=== PATIENT | male | born 1950 | race African-American/Black ===

== ENCOUNTER 2022-12-18 00:23 | Inpatient (IN) | payer SELFPAY ==
[~2022-12-18] VITALS: Ht 195.6 cm; Wt 72.7 kg
[2022-12-18] MEDS ORDERED: SODIUM CHLORIDE 0.9% 1,000 ML IV ONE (01:00)
[2022-12-18 01:09] LABS: Basophils # (auto) 0 10 ^3/uL (0-0.2); Eosinophils # (auto) 0.1 10 ^3/uL (0-0.8); Eosinophils % (auto) 1.7 % (0.0-7.0); Hematocrit 39.5 % (41.0-53.0); Hemoglobin 13.1 g/dL (13.5-17.5); Lymphocytes # (auto) 0.9 10 ^3/uL (0.4-5.4); Lymphocytes % (auto) 21.9 % (10.0-50.0); Mean Corpuscular Hemoglobin 29.4 pg (28.0-32.0); Mean Corpuscular Hgb Conc. 33.1 g/dL (32.0-36.0); Mean Corpuscular Volume 88.9 fL (80.0-100.0); Monocytes # (auto) 0.3 10 ^3/uL (0-1.3); Monocytes % (auto) 8.2 % (0.0-12.0); Neutrophils # (auto) 2.6 10 ^3/uL (1.6-8.6); Neutrophils % (auto) 67.2 % (37.0-80.0); Nucleated Red Blood Cells % 0.1 %; Red Blood Cells 4.44 10^6/uL (4.5-5.90); Red Cell Distribution Width 12.3 % (11.8-14.3); White Blood Cell 3.9 10^3/uL (4.4-10.8)
[2022-12-18 01:25] LABS: Albumin 3.7 g/dL (3.4-5.0); Calcium 9.7 mg/dL (8.5-10.1); Potassium 4.4 mmol/L (3.5-5.1)
[2022-12-18 01:27] LABS: Bilirubin, Total 0.6 mg/dL (0.2-1.0); Total Protein 7.5 g/dL (6.4-8.2)
[2022-12-18 01:53] LABS: BUN/Creatinine Ratio 11.6
[2022-12-18] MEDS ORDERED: InsuLIN REG 1unit/0.01ml Soln (100units/ml) IV ONE (02:30)
[2022-12-18] MEDS ORDERED: DOCUSATE SOD 100 MG CAP PO PRN (06:00)
[2022-12-18] MEDS ORDERED: HYDROcodone-ACET 5/325MG TAB PO PRN (06:00)
[2022-12-18] MEDS ORDERED: DEXTROSE (50%) 50ML SYRG IV PRN (06:00)
[2022-12-18] MEDS ORDERED: hydrALAZINE HCL 20 MG/ML VL IV PRN (06:00)
[2022-12-18] MEDS ORDERED: MORPHINE SULFATE INJ 2 MG/ml SYRG IV PRN (06:00)
[2022-12-18] MEDS ORDERED: NITROGLYCERIN 0.4 MG SL TAB SL PRN (06:00)
[2022-12-18] MEDS ORDERED: ONDANSETRON HCL 4 MG/2 ML VIAL IV PRN (06:00)
[2022-12-18] MEDS ORDERED: ACETAMINOPHEN 325 MG TAB PO PRN (06:00)
[2022-12-18] MEDS ORDERED: SODIUM CHLORIDE 0.9% 1,000 ML IV SCH (06:00)
[2022-12-18 06:56] LABS: Basophils # (auto) 0 10 ^3/uL (0-0.2); Basophils % (auto) 0.6 % (0.0-2.0); Eosinophils # (auto) 0.1 10 ^3/uL (0-0.8); Eosinophils % (auto) 2.2 % (0.0-7.0); Hematocrit 35.6 % (41.0-53.0); Hemoglobin 12.2 g/dL (13.5-17.5); Lymphocytes # (auto) 1.1 10 ^3/uL (0.4-5.4); Mean Corpuscular Hemoglobin 29.5 pg (28.0-32.0); Mean Corpuscular Hgb Conc. 34.2 g/dL (32.0-36.0); Mean Corpuscular Volume 86.3 fL (80.0-100.0); Monocytes # (auto) 0.4 10 ^3/uL (0-1.3); Monocytes % (auto) 9.1 % (0.0-12.0); Neutrophils # (auto) 2.3 10 ^3/uL (1.6-8.6); Neutrophils % (auto) 59.1 % (37.0-80.0); Nucleated Red Blood Cells % 0.2 %; Red Blood Cells 4.12 10^6/uL (4.5-5.90); Red Cell Distribution Width 12.2 % (11.8-14.3); White Blood Cell 3.9 10^3/uL (4.4-10.8)
[2022-12-18 07:07] LABS: Calcium 8.8 mg/dL (8.5-10.1); Potassium 3.7 mmol/L (3.5-5.1)
[2022-12-18 07:13] LABS: Albumin 3.3 g/dL (3.4-5.0); BUN/Creatinine Ratio 10.2; Bilirubin, Total 0.5 mg/dL (0.2-1.0); Total Protein 6.8 g/dL (6.4-8.2)
[2022-12-18] MEDS: ACCU-CHEK COMFORT CURVE STRIP VI SCH ×3 (08:30→16:01)
[2022-12-18] MEDS: InsuLIN REG 1unit/0.01ml Soln (100units/ml) SC SCH ×3 (08:51→16:19)
[2022-12-18] MEDS ORDERED: MULTIPLE VITAMIN TAB PO SCH (10:00)
[2022-12-18] MEDS ORDERED: amLODIPine BESYLATE 5 MG TAB PO SCH (10:00)
[2022-12-18] MEDS ORDERED: FAMOTIDINE (10MG/ML) 2ML VL IV SCH (10:00)
[2022-12-18 16:32] VITALS: BP 128/89
== END 2022-12-18 16:32 | disposition home or self-care (01) | DRG 638 ==
LOC: ER 00:23 → TELE 06:05
PROVIDERS: ADMIT Nurse Practitioner Family; ATTEND Nurse Practitioner Acute Care
DX: E11.65 Type 2 diabetes mellitus with hyperglycemia (principal); E87.1 Hypo-osmolality and hyponatremia; E86.0 Dehydration; I10 Essential (primary) hypertension; Z20.822 Contact with and (suspected) exposure to COVID-19; Z88.0 Allergy status to penicillin
CPT/HCPCS: 36415; 36600; 71045; 80053; 82805; 82962; 83036; 85025; 87426; 96361; 96374; G0378; J1815; J3490

== ENCOUNTER 2023-01-06 14:03 | Emergency (ER) | payer MEDICARE, MEDICAID ==
[~2023-01-06] VITALS: Ht 195.6 cm; Wt 68.1 kg
[2023-01-06] MEDS ORDERED: INSULIN LISPRO (HUMAN) 100 UNITS/ML ML SC ONE (14:30)
[2023-01-06 14:45] LABS: Basophils # (auto) 0 10 ^3/uL (0-0.2); Basophils % (auto) 1.1 % (0.0-2.0); Eosinophils # (auto) 0.1 10 ^3/uL (0-0.8); Eosinophils % (auto) 2.9 % (0.0-7.0); Hemoglobin 11.4 g/dL (13.5-17.5); Lymphocytes # (auto) 0.8 10 ^3/uL (0.4-5.4); Lymphocytes % (auto) 20.6 % (10.0-50.0); Mean Corpuscular Hemoglobin 29.2 pg (28.0-32.0); Mean Corpuscular Hgb Conc. 32.7 g/dL (32.0-36.0); Mean Corpuscular Volume 89.5 fL (80.0-100.0); Monocytes # (auto) 0.2 10 ^3/uL (0-1.3); Monocytes % (auto) 6.6 % (0.0-12.0); Neutrophils # (auto) 2.6 10 ^3/uL (1.6-8.6); Neutrophils % (auto) 68.8 % (37.0-80.0); Nucleated Red Blood Cells % 0.1 %; Red Blood Cells 3.91 10^6/uL (4.5-5.90); Red Cell Distribution Width 13.8 % (11.8-14.3); White Blood Cell 3.8 10^3/uL (4.4-10.8)
[2023-01-06] MEDS ORDERED: SODIUM CHLORIDE 0.9% 1,000 ML IV ONE (14:45)
[2023-01-06 14:59] LABS: Albumin 3.4 g/dL (3.4-5.0); Calcium 8.5 mg/dL (8.5-10.1); Potassium 4.3 mmol/L (3.5-5.1)
[2023-01-06 15:02] LABS: BUN/Creatinine Ratio 10.6 (10.0-20.0); Bilirubin, Total 0.6 mg/dL (0.2-1.0); Total Protein 6.4 g/dL (6.4-8.2)
[2023-01-06 15:18] LABS: INR 0.97 (0.9-1.15); Partial Thromboplastin Time 27.1 sec (24.6-33.4)
[2023-01-06 18:31] LABS: Urine Bacteria NONE SEEN /hpf (None Seen); Urine Blood Negative /uL (Negative); Urine Specific Gravity 1.029 (1.001-1.035); Urine WBC <1 /hpf (0 - 3)
[2023-01-06] MEDS ORDERED: METF-372 PO (19:14)
[2023-01-06 19:40] VITALS: BP 122/78
== END 2023-01-06 19:15 | disposition home or self-care (01) ==
LOC: ER 14:03
DX: E11.65 Type 2 diabetes mellitus with hyperglycemia (principal); D64.9 Anemia, unspecified; R07.89 Other chest pain; I10 Essential (primary) hypertension; Z88.0 Allergy status to penicillin
CPT/HCPCS: 36415; 71045; 80053; 81001; 82010; 83735; 83880; 84484; 85025; 85610; 85730; 93005; 96360; 96361; 96372; 99285; J1815; J7030

== ENCOUNTER 2023-07-20 05:38 | Emergency (ER) | payer MEDICARE, MEDICAID ==
[~2023-07-20] VITALS: Ht 195.6 cm; Wt 72.0 kg
[~2023-07-20 05:38] MED LIST: METF-372 PO
[2023-07-20 06:43] VITALS: BP 136/85; PULSE 63; RESP 16; TEMP 97.6; O2SAT 100
[2023-07-20] MEDS ORDERED: CIPR0.3S67 OP (06:47)
== END 2023-07-20 06:56 | disposition home or self-care (01) ==
LOC: ER 05:38
DX: H10.9 Unspecified conjunctivitis (principal); I10 Essential (primary) hypertension; E11.9 Type 2 diabetes mellitus without complications; Z88.0 Allergy status to penicillin; Z79.899 Other long term (current) drug therapy

== ENCOUNTER 2023-09-08 12:30 | Inpatient (IN) | payer OTHER ==
[~2023-09-08] VITALS: Ht 195.6 cm; Wt 70.8 kg
[~2023-09-08 12:30] MED LIST changes: +CIPR0.3S67 OP
[2023-09-08] MEDS ORDERED: SODIUM CHLORIDE 0.9% 1,000 ML IV ONE ×2 (13:15)
[2023-09-08] MEDS ORDERED: InsuLIN REG 1unit/0.01ml Soln (100units/ml) IV ONE (13:15)
[2023-09-08 13:37] LABS: Basophils # (auto) 0 10 ^3/uL (0-0.2); Basophils % (auto) 0.5 % (0.0-2.0); Eosinophils # (auto) 0 10 ^3/uL (0-0.8); Eosinophils % (auto) 0.8 % (0.0-7.0); Hematocrit 44.1 % (41.0-53.0); Hemoglobin 14.5 g/dL (13.5-17.5); Lymphocytes # (auto) 0.7 10 ^3/uL (0.4-5.4); Lymphocytes % (auto) 12.2 % (10.0-50.0); Mean Corpuscular Hemoglobin 29.4 pg (28.0-32.0); Mean Corpuscular Volume 88.9 fL (80.0-100.0); Monocytes # (auto) 0.3 10 ^3/uL (0-1.3); Monocytes % (auto) 4.7 % (0.0-12.0); Neutrophils # (auto) 4.5 10 ^3/uL (1.6-8.6); Neutrophils % (auto) 81.8 % (37.0-80.0); Nucleated Red Blood Cells % 0.1 %; Red Blood Cells 4.95 10^6/uL (4.5-5.90); Red Cell Distribution Width 12.7 % (11.8-14.3); White Blood Cell 5.5 10^3/uL (4.4-10.8)
[2023-09-08 14:05] LABS: Alanine Aminotransferase 23 U/L (7-40); Albumin 4.5 g/dL (3.2-4.8); Alkaline Phosphatase 135 U/L (46-116); Anion Gap 11 (5-15); Aspartate Aminotransferase 10 U/L (13-40); BUN/Creatinine Ratio 15.8 (10.0-20.0); Bilirubin, Total 0.6 mg/dL (0.2-1.0); Blood Urea Nitrogen 23 mg/dL (9-23); Calcium 9.8 mg/dL (8.7-10.4); Carbon Dioxide 23 mmol/L (20-30); Chloride 100 mmol/L (98-107); Potassium 5.2 mmol/L (3.5-5.1); Sodium 134 mmol/L (136-145); Total Protein 7.1 g/dL (5.7-8.2)
[2023-09-08 14:15] LABS: Glucose 595 mg/dL (74-106)
[2023-09-08] MEDS ORDERED: DEXTROSE (50%) 50ML SYRG IV PRN (17:00)
[2023-09-08] MEDS ORDERED: ONDANSETRON HCL 4 MG/2 ML VIAL IV PRN (17:00)
[2023-09-08] MEDS ORDERED: ACETAMINOPHEN 325 MG TAB PO PRN (17:00)
[2023-09-08] MEDS ORDERED: ASPirin 325 MG TAB PO ONE (17:00)
[2023-09-08] MEDS ORDERED: NITROGLYCERIN 0.4 MG SL TAB SL PRN (17:00)
[2023-09-08] MEDS ORDERED: MORPHINE SULFATE 4 MG/ML SYR/VIAL IV PRN (17:00)
[2023-09-08 17:46] VITALS: PULSE 64; RESP 20; O2SAT 94
[2023-09-08] MEDS: InsuLIN REG 1unit/0.01ml Soln (100units/ml) SC SCH ×2 (18:23→22:14)
[2023-09-08] MEDS: ACCU-CHEK COMFORT CURVE STRIP VI SCH ×2 (18:23→22:15)
[2023-09-08 18:30] LABS: Potassium 4.9 mmol/L (3.5-5.1)
[2023-09-08 18:38] LABS: Phosphorus 4.6 mg/dL (2.4-5.1)
[2023-09-08 18:40] LABS: INR 0.94 (0.9-1.15); Prothrombin Time 9.9 sec (9.3-11.8)
[2023-09-08 19:30] VITALS: PULSE 65; RESP 19; O2SAT 98
[2023-09-08] MEDS: SODIUM CHLORIDE 0.9% 1,000 ML IV SCH (19:30)
[2023-09-08] MEDS: ATORVASTATIN 20 MG TAB PO SCH (22:15)
[2023-09-08] MEDS: METOPROLOL TARTRATE 25 MG TAB PO SCH (22:16)
[2023-09-08 23:53] LABS: Urine Bacteria NONE SEEN /hpf (None Seen); Urine Blood Negative /uL (Negative); Urine Clarity Clear (Clear); Urine Color Colorless (Yellow); Urine Hyaline Cast FEW /lpf (0 - 2); Urine Mucus FEW (None Seen); Urine Protein, UAD Negative (Negative); Urine Specific Gravity 1.028 (1.001-1.035); Urine Urobilinogen Normal (Negative); Urine WBC 4 /hpf (0 - 3)
[2023-09-08 23:59] LABS: Creatinine, Urine 52.76 mg/dL (30.0-125.0)
[2023-09-09] VITALS (9 sets, daily range): BP systolic 105–140; BP diastolic 70–95; PULSE 59–68; RESP 12–20; TEMP 97.2–98.2; O2SAT 95–100
[2023-09-09] MEDS: SODIUM CHLORIDE 0.9% 1,000 ML IV SCH ×3 (04:07→17:48)
[2023-09-09 05:25] LABS: Basophils # (auto) 0 10 ^3/uL (0-0.2); Basophils % (auto) 0.6 % (0.0-2.0); Eosinophils # (auto) 0.1 10 ^3/uL (0-0.8); Eosinophils % (auto) 1.9 % (0.0-7.0); Hematocrit 39.2 % (41.0-53.0); Hemoglobin 12.7 g/dL (13.5-17.5); Lymphocytes # (auto) 1.2 10 ^3/uL (0.4-5.4); Lymphocytes % (auto) 22.3 % (10.0-50.0); Mean Corpuscular Hemoglobin 28.6 pg (28.0-32.0); Mean Corpuscular Hgb Conc. 32.5 g/dL (32.0-36.0); Mean Corpuscular Volume 88.1 fL (80.0-100.0); Monocytes # (auto) 0.4 10 ^3/uL (0-1.3); Monocytes % (auto) 7.8 % (0.0-12.0); Neutrophils # (auto) 3.6 10 ^3/uL (1.6-8.6); Neutrophils % (auto) 67.4 % (37.0-80.0); Nucleated Red Blood Cells % 0.2 %; Red Blood Cells 4.44 10^6/uL (4.5-5.90); Red Cell Distribution Width 12.4 % (11.8-14.3); White Blood Cell 5.4 10^3/uL (4.4-10.8)
[2023-09-09 05:52] LABS: Alanine Aminotransferase 17 U/L (7-40); Alkaline Phosphatase 100 U/L (46-116); Anion Gap 9 (5-15); BUN/Creatinine Ratio 11.7 (10.0-20.0); Blood Urea Nitrogen 13 mg/dL (9-23); Carbon Dioxide 22 mmol/L (20-30); Chloride 108 mmol/L (98-107); LDL Cholesterol 127 mg/dL (< 100); Potassium 4.1 mmol/L (3.5-5.1); Sodium 139 mmol/L (136-145); Triglycerides 125 mg/dL (< 150)
[2023-09-09 05:53] LABS: Albumin 3.8 g/dL (3.2-4.8); Aspartate Aminotransferase < 8 U/L (13-40); Cholesterol 181 mg/dL (< 200); HDL Cholesterol 34 mg/dL (40-59)
[2023-09-09 05:54] LABS: Bilirubin, Total 0.6 mg/dL (0.2-1.0); Total Protein 6.2 g/dL (5.7-8.2)
[2023-09-09] MEDS: InsuLIN REG 1unit/0.01ml Soln (100units/ml) SC SCH ×4 (06:13→21:10)
[2023-09-09] MEDS: ACCU-CHEK COMFORT CURVE STRIP VI SCH ×4 (06:18→21:11)
[2023-09-09 06:31] LABS: Glucose 254 mg/dL (74-106)
[2023-09-09] MEDS ORDERED: GLIP2.5T9 PO (08:41)
[2023-09-09] MEDS: DOCUSATE SOD 100 MG CAP PO SCH (09:05)
[2023-09-09] MEDS: ASPirin 81 mg TAB PO SCH (09:05)
[2023-09-09] MEDS: METOPROLOL TARTRATE 25 MG TAB PO SCH ×2 (09:06→21:19)
[2023-09-09] MEDS: NICOTINE 21MG/24 HR TOPICAL PATCH TD SCH (10:00)
[2023-09-09] MEDS: ATORVASTATIN 20 MG TAB PO SCH (21:18)
[2023-09-09] MEDS ORDERED: INSULIN LANTUS (GLARGINE) 1 /0.01ml (100units/ml) SC SCH (22:00)
[2023-09-10] MEDS: SODIUM CHLORIDE 0.9% 1,000 ML IV SCH ×2 (04:01→09:26)
[2023-09-10 04:58] VITALS: BP 122/80; PULSE 57; RESP 18; TEMP 97.4; O2SAT 98
[2023-09-10] MEDS: ACCU-CHEK COMFORT CURVE STRIP VI SCH ×2 (05:58→11:34)
[2023-09-10] MEDS: InsuLIN REG 1unit/0.01ml Soln (100units/ml) SC SCH ×2 (05:58→12:00)
[2023-09-10 08:00] VITALS: O2SAT 98
[2023-09-10 08:10] VITALS: PULSE 60
[2023-09-10 08:45] VITALS: BP 114/77; PULSE 60; RESP 17; TEMP 98; O2SAT 98
[2023-09-10] MEDS: ASPirin 81 mg TAB PO SCH (09:30)
[2023-09-10] MEDS: DOCUSATE SOD 100 MG CAP PO SCH (09:30)
[2023-09-10] MEDS: METOPROLOL TARTRATE 25 MG TAB PO SCH (09:32)
[2023-09-10] MEDS: NICOTINE 21MG/24 HR TOPICAL PATCH TD SCH (09:33)
[2023-09-10] MEDS ORDERED: ASPI-325 PO (12:13)
[2023-09-10] MEDS ORDERED: ATO40T PO (12:13)
[2023-09-10] MEDS ORDERED: BLOO1KIT60 XX (12:13)
[2023-09-10] MEDS ORDERED: GLIP2.5T9 PO (12:13)
[2023-09-10] MEDS ORDERED: METF-372 PO (12:13)
[2023-09-10] MEDS ORDERED: EMPA1TAB PO (12:13)
[2023-09-10 12:55] VITALS: BP 131/88; PULSE 59; RESP 18; TEMP 97.8; O2SAT 96
[2023-09-10 14:49] VITALS: BP 135/85; PULSE 59; TEMP 36.7
== END 2023-09-10 16:12 | disposition home or self-care (01) | DRG 638 ==
LOC: ER 12:30 → TELE 16:58 → TELE-WESTW 23:48
PROVIDERS: ADMIT Internal Medicine; ATTEND Internal Medicine
DX: E11.65 Type 2 diabetes mellitus with hyperglycemia (principal); E87.1 Hypo-osmolality and hyponatremia; N17.9 Acute kidney failure, unspecified; E78.5 Hyperlipidemia, unspecified; D64.9 Anemia, unspecified; E86.0 Dehydration; E87.5 Hyperkalemia; F17.200 Nicotine dependence, unspecified, uncomplicated; I10 Essential (primary) hypertension; N40.0 Benign prostatic hyperplasia without lower urinary tract symptoms; E11.42 Type 2 diabetes mellitus with diabetic polyneuropathy; Z88.0 Allergy status to penicillin; Z79.84 Long term (current) use of oral hypoglycemic drugs; Z82.49 Family history of ischemic heart disease and other diseases of the circulatory system
CPT/HCPCS: 36415; 70450; 71045; 80053; 80061; 81001; 82010; 82570; 82962; 83036; 83735; 84100; 84132; 84300; 84484; 85025; 85610; 93306; 96361; 96374; G0378; J1815

== ENCOUNTER 2024-01-20 09:30 | Emergency (ER) | payer OTHER ==
[~2024-01-20] VITALS: Ht 195.6 cm; Wt 71.7 kg
[~2024-01-20 09:30] MED LIST changes: +ASPI-325 PO; +ATOR-507 PO; +BLOO1KIT60 XX; -CIPR0.3S67 OP; +EMPA1TAB PO; +GLIP2.5T9 PO
[2024-01-20 12:59] VITALS: PULSE 62; RESP 17; O2SAT 99
[2024-01-20] MEDS ORDERED: MUPI2OIN2 TOP (14:15)
[2024-01-20] MEDS ORDERED: DOXY1CAP57 PO (14:15)
[2024-01-20 15:07] VITALS: TEMP 98.4
[2024-01-20 15:38] VITALS: PULSE 72; RESP 16; O2SAT 98
[2024-01-20 15:40] VITALS: BP 138/90
[2024-01-20] MEDS: cefTRIAXone SOD 500 MG VL IM ONE (16:14)
== END 2024-01-20 15:52 | disposition home or self-care (01) ==
LOC: ER 09:30
DX: E11.621 Type 2 diabetes mellitus with foot ulcer (principal); I10 Essential (primary) hypertension; Z79.82 Long term (current) use of aspirin; Z79.2 Long term (current) use of antibiotics; Z79.899 Other long term (current) drug therapy; Z88.0 Allergy status to penicillin
CPT/HCPCS: 73660; 82962; 96372; 99283; J0696

== ENCOUNTER → 2024-01-29 | Outpatient (CLI) | payer OTHER ==
[~2024-01-29] MED LIST changes: +DOXY1CAP57 PO; +MUPI2OIN2 TOP
== END | disposition home or self-care (01) ==
LOC: XYW 10:26
PROVIDERS: ATTEND Student in an Organized Health Care Education/Training Program
DX: E11.621 Type 2 diabetes mellitus with foot ulcer (principal)
CPT/HCPCS: 93925

== ENCOUNTER → 2024-11-05 | Outpatient (CLI) | payer OTHER ==
[2024-11-05 11:09] LABS: Basophils # (auto) 0 10 ^3/uL (0-0.2); Basophils % (auto) 0.9 % (0.0-2.0); Eosinophils # (auto) 0.2 10 ^3/uL (0-0.8); Eosinophils % (auto) 3.8 % (0.0-7.0); Hematocrit 37.7 % (41.0-53.0); Hemoglobin 12.4 g/dL (13.5-17.5); Lymphocytes # (auto) 0.9 10 ^3/uL (0.4-5.4); Lymphocytes % (auto) 19.1 % (10.0-50.0); Mean Corpuscular Hemoglobin 29.1 pg (28.0-32.0); Mean Corpuscular Hgb Conc. 32.8 g/dL (32.0-36.0); Mean Corpuscular Volume 88.8 fL (80.0-100.0); Monocytes # (auto) 0.3 10 ^3/uL (0-1.3); Monocytes % (auto) 7.4 % (0.0-12.0); Neutrophils # (auto) 3.2 10 ^3/uL (1.6-8.6); Neutrophils % (auto) 68.8 % (37.0-80.0); Nucleated Red Blood Cells % 0.1 %; Platelet Count (auto) 220 10^3/uL (140-450); Red Blood Cells 4.25 10^6/uL (4.5-5.90); Red Cell Distribution Width 12.9 % (11.8-14.3); White Blood Cell 4.6 10^3/uL (4.4-10.8)
[2024-11-05 11:27] LABS: % Iron Saturation 33.9 % (20-55)
[2024-11-05 11:34] LABS: Alkaline Phosphatase 107 U/L (46-116); Anion Gap 8 (5-15); BUN/Creatinine Ratio 10.2 (10.0-20.0); Blood Urea Nitrogen 13 mg/dL (9-23); Calcium 9.7 mg/dL (8.7-10.4); Carbon Dioxide 26 mmol/L (20-31); Potassium 3.7 mmol/L (3.5-5.1); Sodium 142 mmol/L (136-145)
[2024-11-05 11:36] LABS: Albumin 4.6 g/dL (3.2-4.8); Bilirubin, Total 0.7 mg/dL (0.2-1.0); Total Protein 7.2 g/dL (5.7-8.2)
[2024-11-05 11:41] LABS: Alanine Aminotransferase < 9 U/L (7-40); Aspartate Aminotransferase 9 U/L (13-40); Chloride 108 mmol/L (98-107); Glucose 130 mg/dL (74-106)
[2024-11-05 12:04] LABS: Hepatitis B Core Total AB Negative (Negative)
[2024-11-05 12:56] LABS: Creatinine, Urine 162.04 mg/dL (30.0-125.0); Protein, Urine 18.9 mg/dL (1-14); Urine Protein/Creatinine Ratio 0.12
[2024-11-05 14:01] LABS: Hepatitis A Total Antibody Negative (Negative)
[2024-11-05 14:02] LABS: Hepatitis B Surface Antibody Negative (Negative); Hepatitis B Surface Antigen Negative (Negative); Hepatitis C Antibody Negative (Negative)
[2024-11-06 08:06] LABS: PSA Free 0.46 ng/mL; Prostate Specific Antigen 4.9 ng/mL (0.0-4.0)
== END | disposition home or self-care (01) ==
LOC: LAB 10:27
PROVIDERS: ATTEND Internal Medicine Hematology & Oncology
DX: I10 Essential (primary) hypertension (principal); E11.42 Type 2 diabetes mellitus with diabetic polyneuropathy; J44.9 Chronic obstructive pulmonary disease, unspecified; F17.200 Nicotine dependence, unspecified, uncomplicated
CPT/HCPCS: 36415; 80053; 82043; 82570; 82728; 83036; 83540; 83550; 83615; 84154; 84156; 85025; 86704; 86706; 86708; 86803; 87340

== ENCOUNTER 2025-03-16 13:30 | Outpatient (CLI) | payer OTHER ==
[2025-03-16 14:12] LABS: Basophils # (auto) 0 10 ^3/uL (0-0.2); Basophils % (auto) 0.8 % (0.0-2.0); Eosinophils # (auto) 0.1 10 ^3/uL (0-0.8); Eosinophils % (auto) 3.8 % (0.0-7.0); Hematocrit 35.4 % (41.0-53.0); Hemoglobin 12.3 g/dL (13.5-17.5); Lymphocytes # (auto) 0.8 10 ^3/uL (0.4-5.4); Lymphocytes % (auto) 22.2 % (10.0-50.0); Mean Corpuscular Hemoglobin 30.3 pg (28.0-32.0); Mean Corpuscular Hgb Conc. 34.6 g/dL (32.0-36.0); Mean Corpuscular Volume 87.6 fL (80.0-100.0); Monocytes # (auto) 0.3 10 ^3/uL (0-1.3); Monocytes % (auto) 7.9 % (0.0-12.0); Neutrophils # (auto) 2.3 10 ^3/uL (1.6-8.6); Neutrophils % (auto) 65.3 % (37.0-80.0); Nucleated Red Blood Cells % 0.1 %; Platelet Count (auto) 206 10^3/uL (140-450); Red Blood Cells 4.05 10^6/uL (4.5-5.90); Red Cell Distribution Width 12.5 % (11.8-14.3); White Blood Cell 3.6 10^3/uL (4.4-10.8)
[2025-03-16 14:29] LABS: Protein, Urine 7.9 mg/dL (1-14)
[2025-03-16 14:31] LABS: Creatinine, Urine 96.41 mg/dL (30.0-125.0); Urine Protein/Creatinine Ratio 0.08
[2025-03-16 14:36] LABS: Alanine Aminotransferase 14 U/L (7-40); Albumin 4.5 g/dL (3.2-4.8); Alkaline Phosphatase 94 U/L (46-116); Anion Gap 7 (5-15); Aspartate Aminotransferase 14 U/L (<34); BUN/Creatinine Ratio 12.5 (10.0-20.0); Bilirubin, Total 0.6 mg/dL (0.2-1.0); Blood Urea Nitrogen 14 mg/dL (9-23); Carbon Dioxide 28 mmol/L (20-31); Potassium 4.1 mmol/L (3.5-5.1); Sodium 143 mmol/L (136-145); Total Protein 7.1 g/dL (5.7-8.2)
[2025-03-16 14:38] LABS: Ferritin 171.6 ng/mL (22-322)
[2025-03-16 14:42] LABS: Prostate Specific Antigen 5.92 ng/mL (0.0-4.0)
[2025-03-16 14:45] LABS: Chloride 108 mmol/L (98-107); Glucose 205 mg/dL (74-106)
[2025-03-16 15:12] LABS: Hepatitis B Core Total AB Negative (Negative)
[2025-03-16 16:53] LABS: Hepatitis A Total Antibody Negative (Negative); Hepatitis B Surface Antibody Negative (Negative)
[2025-03-16 16:54] LABS: Hepatitis B Surface Antigen Negative (Negative); Hepatitis C Antibody Negative (Negative)
[2025-03-17 08:07] LABS: PSA Free 0.54 ng/mL; Prostate Specific Antigen 6.9 ng/mL (0.0-4.0)
== END 2025-03-16 17:00 | disposition home or self-care (01) ==
LOC: LAB 13:30
PROVIDERS: ATTEND Internal Medicine Hematology & Oncology
DX: I10 Essential (primary) hypertension (principal); E11.42 Type 2 diabetes mellitus with diabetic polyneuropathy; E11.69 Type 2 diabetes mellitus with other specified complication; F17.200 Nicotine dependence, unspecified, uncomplicated; J44.9 Chronic obstructive pulmonary disease, unspecified; Z79.899 Other long term (current) drug therapy
CPT/HCPCS: 36415; 80053; 82043; 82570; 82728; 83036; 83540; 83550; 83615; 84153; 84154; 84156; 85025; 86704; 86706; 86708; 86803; 87340

== ENCOUNTER 2025-06-24 10:43 | Outpatient (CLI) | payer OTHER ==
[2025-06-24 14:19] LABS: Protein, Urine 15.3 mg/dL (1-14)
[2025-06-24 14:22] LABS: Cholesterol 188 mg/dL (< 200); Triglycerides 105 mg/dL (< 150)
[2025-06-24 14:25] LABS: HDL Cholesterol 37 mg/dL (40-59)
== END 2025-06-24 17:00 | disposition home or self-care (01) ==
LOC: LAB 10:43
PROVIDERS: ATTEND Internal Medicine Hematology & Oncology
DX: I10 Essential (primary) hypertension (principal); E11.42 Type 2 diabetes mellitus with diabetic polyneuropathy; E11.69 Type 2 diabetes mellitus with other specified complication; E11.51 Type 2 diabetes mellitus with diabetic peripheral angiopathy without gangrene; E78.5 Hyperlipidemia, unspecified; I16.9 Hypertensive crisis, unspecified; J44.9 Chronic obstructive pulmonary disease, unspecified; F17.200 Nicotine dependence, unspecified, uncomplicated; R97.20 Elevated prostate specific antigen [PSA]; L84 Corns and callosities; M79.671 Pain in right foot; M21.611 Bunion of right foot; I87.2 Venous insufficiency (chronic) (peripheral); L40.0 Psoriasis vulgaris; H53.8 Other visual disturbances; L97.511 Non-pressure chronic ulcer of other part of right foot limited to breakdown of skin; Z91.120 Patient's intentional underdosing of medication regimen due to financial hardship
CPT/HCPCS: 36415; 80061; 82043; 82570; 84156

== ENCOUNTER 2025-09-29 11:02 | Outpatient (CLI) | payer OTHER ==
[2025-09-29 11:56] LABS: Hematocrit 40.5 % (41.0-53.0); Hemoglobin 13.5 g/dL (13.5-17.5); Mean Corpuscular Hemoglobin 29.4 pg (28.0-32.0); Mean Corpuscular Volume 88.3 fL (80.0-100.0); Nucleated Red Blood Cells % 0.1 %
[2025-09-29 12:11] LABS: Iron 63.0 ug/dL (65-175)
[2025-09-29 12:14] LABS: Prostate Specific Antigen 8.83 ng/mL (0.0-4.0); Total Iron Binding Capacity 284.0 ug/dL (250-425)
[2025-09-29 12:15] LABS: Alanine Aminotransferase 16 U/L (7-40); Albumin 4.7 g/dL (3.2-4.8); Alkaline Phosphatase 137 U/L (46-116); Anion Gap 4 (5-15); BUN/Creatinine Ratio 7.7 (10.0-20.0); Bilirubin, Total 0.7 mg/dL (0.2-1.0); Blood Urea Nitrogen 8 mg/dL (9-23); Calcium 9.7 mg/dL (8.7-10.4); Carbon Dioxide 29 mmol/L (20-31); Chloride 109 mmol/L (98-107); Glucose 167 mg/dL (74-106); Potassium 4.1 mmol/L (3.5-5.1); Sodium 142 mmol/L (136-145); Total Protein 7.9 g/dL (5.7-8.2)
[2025-09-29 12:18] LABS: Ferritin 237.9 ng/mL (22-322)
[2025-09-30 08:07] LABS: Prostate Specific Antigen 10.2 ng/mL (0.0-4.0)
[2025-09-30 10:31] LABS: Hepatitis B Surface Antigen Negative (Negative)
[2025-09-30 11:12] LABS: Hepatitis C Antibody Negative (Negative)
== END 2025-09-29 17:00 | disposition home or self-care (01) ==
LOC: LAB 11:02
PROVIDERS: ATTEND Internal Medicine Hematology & Oncology
DX: E11.42 Type 2 diabetes mellitus with diabetic polyneuropathy (principal); I10 Essential (primary) hypertension; J44.9 Chronic obstructive pulmonary disease, unspecified; R97.20 Elevated prostate specific antigen [PSA]; L84 Corns and callosities; M79.671 Pain in right foot; M21.611 Bunion of right foot; I87.2 Venous insufficiency (chronic) (peripheral); E78.5 Hyperlipidemia, unspecified; E11.51 Type 2 diabetes mellitus with diabetic peripheral angiopathy without gangrene; L97.511 Non-pressure chronic ulcer of other part of right foot limited to breakdown of skin; F17.200 Nicotine dependence, unspecified, uncomplicated
CPT/HCPCS: 36415; 80053; 80074; 82728; 83036; 83540; 83550; 83615; 84153; 84154; 85025